=== PATIENT | female | born 1975 | race Caucasian/White ===

== ENCOUNTER 2019-12-20 17:22 | Inpatient (IN) | payer BC ==
[~2019-12-20] VITALS: Ht 188 cm; Wt 113.4 kg
[~2019-12-20 17:22] MED LIST: AUGMENTIN 875875 MG PO; HUMIRA40 MG/0.8 SQ; HYDROCODON-ACE1 EAC4 PO; HYDROCODON-ACE1 EAC5 PO; NAPROSYN500 MG PO; PREDNISONE; PREDNISONE 10 M10 M1 PO; PREDNISONE 5 MG5 M1 PO; PRILOSEC 20 MG20 MG PO; PROTONIX40 M2 PO; ULTRAM 50MG TAB50 MG PO; XANAX 0.25 MG0.25 MG PO
[2019-12-20 17:25] VITALS: BP 133/107
[2019-12-20 17:43] LABS: URINE BILIRUBIN NEGATIVE (Negative); URINE BLOOD 2+ (Negative); URINE CLARITY SL CLOUDY; URINE COLOR YELLOW; URINE GLUCOSE-RANDOM* NEGATIVE (Negative); URINE KETONES TRACE (Negative); URINE NITRITE-REFLEX NEGATIVE (Negative); URINE PROTEIN (DIPSTICK) TRACE (Negative); URINE UROBILINOGEN 0.2 E.U./dl (0.2-1.0)
[2019-12-20 17:44] LABS: URINE LEUKOCYTES-REFLEX 2+ (Negative)
[2019-12-20 17:51] LABS: SQUAMOUS >10 Many /LPF (0-3)
[2019-12-20 17:53] LABS: URINE WBC-REFLEX >25 Many /HPF (0-5)
[2019-12-20 17:55] LABS: BACTERIA-REFLEX >30 Many /HPF (None Seen); CASTS None Seen /LPF (None Seen); URINE RBC 3-10 Few /HPF (0-2)
[2019-12-20 17:56] LABS: CRYSTALS None Seen /LPF (None Seen)
[2019-12-20 18:42] LABS: ABSOLUTE NEUTROPHILS 13.2 thou/uL (1.4-8.2); BASOPHILS 0.2 % (0.0-2.0); EOSINOPHILS 0.8 % (0.0-3.0); HEMATOCRIT 42.8 % (37.0-47.0); HEMOGLOBIN 14.6 gm/dL (12.0-15.0); LYMPHOCYTES 9.4 % (24.0-44.0); MCH 29.5 pg (26.0-34.0); MCV 86.6 fL (80.0-100.0); MONOCYTES 4.6 % (1.0-8.0); PLATELET COUNT 241 thou/uL (150-400); RBC 4.94 mil/uL (4.20-5.00); WBC 15.5 thou/uL (4.0-11.0)
[2019-12-20 18:49] LABS: CALCIUM 9.9 mg/dL (8.5-10.1); CREATININE 0.9 mg/dL (0.6-1.0); POTASSIUM 3.4 mmol/L (3.5-5.1)
[2019-12-20 18:56] LABS: ALBUMIN 4.5 g/dL (3.4-5.0); TOTAL BILIRUBIN 0.8 mg/dL (<0.1-1.0); TOTAL PROTEIN 8.8 g/dL (6.4-8.2)
[2019-12-20 20:24] VITALS: BP 126/78
[2019-12-20 20:33] VITALS: BP 114/75
[2019-12-20 21:00] VITALS: BP 127/69
--- NOTE | 2019-12-21 03:50 | NUR ---
Pt. admitted to the unit from the emergency room accompanied by staff. She is alert and oriented. Admission assessment and history is completed. Pt. oriented to staff and room.
--- NOTE | 2019-12-21 03:52 | NUR ---
Pt. rested quietly at intervals during the night when checked on during frequent rounds. She has been medicated for c/o abdominal pain and nausea (see emar) with some relief voiced. Up ad samina in the room.
[2019-12-21 04:00] VITALS: BP 108/57
[2019-12-21 06:03] LABS: HEMATOCRIT 35.9 % (37.0-47.0); HEMOGLOBIN 12.4 gm/dL (12.0-15.0); MCH 30.3 pg (26.0-34.0); MCHC 34.5 g/dL (28.0-37.0); MCV 87.8 fL (80.0-100.0); RBC 4.08 mil/uL (4.20-5.00); RDW 12.6 % (10.5-14.5); WBC 11.4 thou/uL (4.0-11.0)
[2019-12-21 06:20] LABS: CALCIUM 8.7 mg/dL (8.5-10.1); CREATININE 0.7 mg/dL (0.6-1.0); POTASSIUM 3.9 mmol/L (3.5-5.1)
[2019-12-21 09:00] VITALS: BP 107/62
--- NOTE | 2019-12-21 12:08 | NUR ---
PT IS AOX4, NO C/O PAIN AT THIS TIME. PT IV ON RIGHT AC IS PATENT WITH IV FLUIDS RUNNING. PT HAS BEEN ADVANCED TO CLEAR LIQUID DIET. TOLERATING WATER NO N/V NOTED. UP WITH SB ASSIST TO RESTROOM. CALL LIGHT IN REACH. WILL CONTINUE TO MONITOR.
[2019-12-21 16:00] VITALS: BP 118/70
[2019-12-21 19:54] VITALS: BP 118/62
--- NOTE | 2019-12-21 20:23 | HC ---
[facility] [place] [address] CONSULTATION Name: MYRANDA CLAUDIO Room #: 449-I ADM IN M.R.#: [id number] Admission: 12/20/19 Attend Phys: Alexander Warren MD Discharge: Date of : 77 Report #: [id number] THIS REPORT FOR: cc: FAM - Family physician unknown AURY - Family physician unknown Marquez Patricio MD ~ CC: AURY unknown Alexander Warren DATE OF SERVICE: 12/21/2019 REASON FOR CONSULTATION: The patient is a 44-year-old woman with history of Crohn's disease with abdominal pain, nausea and vomiting. HISTORY OF PRESENT ILLNESS: This patient has been followed by my associate, Dr. Vern Marx. She was diagnosed with Crohn's disease about 2008. She was initially treated with steroids and a year or so later was placed on Humira and has done well since that time. She takes Humira injections every other week. She reports that she has had 2 bowel blockages in the past, which were treated with steroids. At 3 a.m. on 12/20/2019, she was awakened with severe cramping abdominal pain. The pain was quite intense at times. Yesterday, she developed nausea. She also reported she was belching a lot of foul smelling gaseous material. She contacted me yesterday afternoon. I encouraged her to go to the hospital because it sounded like she has a small-bowel obstruction. However, she was very reluctant to do so. So I called in a prescription for steroids to have her start 40 mg of prednisone daily. She says she took the first 2 pills and had more nausea and had large volume emesis without blood. Because of the vomiting she presented to the Emergency Room at [facility] where she was seen and evaluated. She had a CT scan done of the abdomen and pelvis. The scan was done with contrast. There was noted to be 14 cm in length of the mid to distal small bowel that demonstrates mural thickening. It was smooth and tapering. This was thought to be an area of obstruction. This was similar to previous study in 2013. Terminal ileum is normal. The colon appears normal. She has not had any further vomiting. She did report yesterday that she was having very small stools and a very small amount of flatus. That has not changed as of this time. She has not had any rectal bleeding. PAST MEDICAL HISTORY: She has otherwise been in good health. PAST SURGICAL HISTORY: She had a left hip surgery this past week. Implants were not placed. She has not had any other surgeries. [address] [address] CONSULTATION Name: MYRANDA CLAUDIO Room #: 449-I ADM IN M.R.#: [id number] Admission: 12/20/19 Attend Phys: Alexander Warren MD Discharge: Date of : 77 Report #: [id number] ALLERGIES: No known drug allergies. MEDICATIONS: Usual medications, Humira 40 mg subcutaneous injection every other week following her hip surgery earlier this week. She was given hydrocodone, a muscle relaxant, which she only took a couple. FAMILY HISTORY: No family history of colon cancer, ulcer disease or inflammatory diseases. SOCIAL HISTORY: , no children. She works as a dispatcher for [employer]. She does not smoke or consume alcohol. REVIEW OF SYSTEMS: GENERAL: No change in weight, fever or chills. CENTRAL NERVOUS SYSTEM: No focal weakness, numbness, loss of consciousness, seizures or strokes. ENT: No change in vision, hearing, or sores in the mouth. PULMONARY: No cough, pneumonia, or tuberculosis. CARDIOVASCULAR: No chest pain, chest tightness or palpitations, GASTROINTESTINAL: Crohn's disease, recent nausea, vomiting, abdominal distention, abdominal pain, no rectal bleeding. GENITOURINARY: She has evidence of pyuria and is currently being treated for urinary tract infection, although she denies any symptoms. GYNECOLOGIC: No discharges, bleeding or breast problems. MUSCULOSKELETAL: Hip disease. SKIN: Without rash. PSYCHIATRIC: No depression, anxiety or bipolar illness. ENDOCRINE: She denies diabetes or thyroid problems. HEMATOLOGIC: No bleeding, bruising or malignancies. PHYSICAL EXAMINATION: GENERAL: The patient is a well-developed, well-nourished, pleasant woman in no acute distress. VITAL SIGNS: Blood pressure 108/57, pulse 59. HEENT: Anicteric. Pupils equal and round. Oropharynx clear. NECK: Supple. CHEST: Clear. HEART: Regular rate and rhythm, normal S1 and S2. ABDOMEN: Soft, flat with few bowel sounds, somewhat hypoactive. No significant tenderness on palpation. EXTREMITIES: Without cyanosis, clubbing, or edema. NEUROLOGIC: Oriented to place and time. Moves all 4 extremities well. LABORATORY STUDIES: White count of 15.5 when she presented last night, down to 11.4 today. Hemoglobin was 14.6 and after hydration was 12.4, MCV normal at 87. [facility] [address] [place] [address] CONSULTATION Name: MYRANDA CLAUDIO Room #: 449-I ADM IN M.R.#: [id number] Admission: 12/20/19 Attend Phys: Alexander Warren MD Discharge: Date of : 77 Report #: [id number] Electrolytes unremarkable this morning. Albumin 4.5. LFTs were normal. ASSESSMENT: 1. Crohn's disease with exacerbation. 2. Partial small-bowel obstruction secondary to Crohn's disease. 3. Urinary tract infection. 4. Recent hip surgery. The patient reports she feels improved this morning, she is to start steroids. At this point, I would anticipate rapid improvement in the next couple of days. PLAN: 1. Agree with IV steroids. 2. She is to be seen by Dr. Marx tomorrow to discuss other options besides Humira. <ELECTRONICALLY SIGNED> By: Marquez Patricio MD 12/21/192022 [id number] Marquez Patricio MD /nt
--- NOTE | 2019-12-22 02:30 | NUR ---
ASSUMED CARE OF PT AT 1900HRS. PT IS AOX4 AND LETS NEEDS BE KNOWN. PT IS UP AD JENNY. PT REPORTED MINOR ABD PAIN BUT REFUSED PAIN MEDS. PT DENIED NAUSEA OR SOA. PT HAD SEVERAL LOOSE BM THIS SHIFT AND THE SHIFT BEFORE. ABX TREATMENT CONTINUED. FLUID CONTINUED. PT TOLERATING CLEAR LIQUID DIET. VSS AND NO S/S OF ACUTE DISTRESS. WILL CONTINUE TO MONITOR.
[2019-12-22 06:07] LABS: HEMATOCRIT 37.5 % (37.0-47.0); HEMOGLOBIN 12.9 gm/dL (12.0-15.0); MCH 30.4 pg (26.0-34.0); MCHC 34.3 g/dL (28.0-37.0); MCV 88.5 fL (80.0-100.0); RBC 4.24 mil/uL (4.20-5.00); RDW 12.9 % (10.5-14.5); WBC 9.9 thou/uL (4.0-11.0)
[2019-12-22 06:34] LABS: ALBUMIN 3.5 g/dL (3.4-5.0); CALCIUM 8.6 mg/dL (8.5-10.1); CREATININE 0.8 mg/dL (0.6-1.0); MAGNESIUM 1.9 mg/dL (1.8-2.4); POTASSIUM 3.6 mmol/L (3.5-5.1); TOTAL BILIRUBIN 0.4 mg/dL (<0.1-1.0); TOTAL PROTEIN 7.3 g/dL (6.4-8.2)
[2019-12-22 08:00] VITALS: BP 132/65
[2019-12-22] MEDS ORDERED: PREDNISONE 5 MG5 M1 PO ×2 (15:54→15:57)
[2019-12-22 16:25] VITALS: BP 132/65
--- NOTE | 2019-12-22 16:40 | NUR ---
Assumed pt care at 7am.Pt up adlib in the room with steady gait.Assessment completed.vss.Pt tolerated clear liq diet.Dr Almonte and Phil here, dc order noted.Dc summary compile and reviewed with pt.Rx and dc summary copy given prior to dc home at 1640.
== END 2019-12-22 17:01 | disposition home or self-care (01) | DRG 385 ==
LOC: ER 17:22 → EROBS 20:05 → 4W 20:05
PROVIDERS: Hospitalist; Nurse Practitioner Family; Physician Assistant; ADMIT Hospitalist
DX: K50.012 Crohn's disease of small intestine with intestinal obstruction (principal); R65.11 Systemic inflammatory response syndrome (SIRS) of non-infectious origin with acute organ dysfunction; N39.0 Urinary tract infection, site not specified; Z96.642 Presence of left artificial hip joint; Z79.2 Long term (current) use of antibiotics; Z79.899 Other long term (current) drug therapy; Z87.891 Personal history of nicotine dependence
CPT/HCPCS: 10040